=== PATIENT | female | born 1950 | race Caucasian/White ===

== ENCOUNTER → 2017-07-05 | Outpatient (REF) | payer BC ==
[~2017-07-05] MED LIST: COLA100C2 OR; PERC5TAB8 OR; PERC7.5T8 OR
[2017-07-05 12:28] LABS: ALBUMIN 3.7 GM/DL (3.2-5.2); ALBUMIN/GLOBULIN RATIO 1.32 (1.00-1.93); BILIRUBIN,TOTAL 0.9 MG/DL (0.2-1.0); CALCIUM LEVEL 9.3 MG/DL (8.8-10.2); CREATININE FOR GFR 1.02 MG/DL (0.55-1.02); GLOMERULAR FILTRATION RATE 57.4 (>45); POTASSIUM SERUM 3.9 MEQ/L (3.5-5.1); TOTAL PROTEIN 6.5 GM/DL (6.4-8.2)
== END ==
LOC: M SFHCCLAY 06:56
PROVIDERS: ATTEND Family Medicine
DX: I10 Essential (primary) hypertension (principal); E78.00 Pure hypercholesterolemia, unspecified

== ENCOUNTER → 2017-08-11 | Outpatient (CLI) | payer BC ==
--- NOTE | 2017-08-11 16:50 | REPMRS ---
Patient History The patient states she had a clinical breast exam in 07/2017. Patient is postmenopausal. Family history of breast cancer in paternal aunt, breast cancer in maternal aunt at age 50 or over, and breast cancer in maternal grandmother at age 50 or over. Digital Woman Screen Mammo: August 11, 2017 - Exam #: [id number] Bilateral CC and MLO view(s) were taken. Technologist: Shakira Valencia Technologist Prior study comparison: August 10, 2016, digital woman screen mammo performed at [facility]. August 07, 2015, digital woman screen mammo performed at [facility]. FINDINGS: There are scattered fibroglandular densities. There has been no change in the appearance of the mammogram from the prior studies. There is a mild amount of residual fibroglandular tissue which is fairly symmetric. There is no interval development of dominant mass, architectural distortion, or clustered microcalcification suggestive of malignancy. ASSESSMENT: BI-RADS/ACR category 1 mammogram. Negative. Recommendation Routine screening mammogram in 1 year (for women over age 40). This mammogram was interpreted with the aid of an FDA-approved computer-aided dectection system. Electronically Signed By: Loy Villanueva MD 08/11/17 3096
== END ==
LOC: M WHC 15:21
PROVIDERS: ATTEND Nurse Practitioner Women's Health
DX: Z12.31 Encounter for screening mammogram for malignant neoplasm of breast (principal); Z78.0 Asymptomatic menopausal state; Z80.3 Family history of malignant neoplasm of breast

== ENCOUNTER → 2017-11-16 | Outpatient (CLI) | payer BC | LOC: M CLY 08:58 | DX: M79.671 Pain in right foot (principal) ==

== ENCOUNTER → 2018-07-10 | Outpatient (REF) | payer BC ==
[2018-07-10 12:31] LABS: ALBUMIN 3.7 GM/DL (3.2-5.2); ALBUMIN/GLOBULIN RATIO 1.54 (1.00-1.93); ALKALINE PHOSPHATASE 57 U/L (45-117); ALT/SGPT 31 U/L (12-78); ANION GAP 7 MEQ/L (8-16); AST/SGOT 20 U/L (7-37); BILIRUBIN,TOTAL 0.7 MG/DL (0.2-1.0); BLOOD UREA NITROGEN 15 MG/DL (7-18); CALCIUM LEVEL 9.4 MG/DL (8.8-10.2); CARBON DIOXIDE LEVEL 29 MEQ/L (21-32); CHLORIDE LEVEL 106 MEQ/L (98-107); CHOLESTEROL LEVEL 158 MG/DL (<200); CHOLESTEROL RISK RATIO 3.098 (<5); CREATININE FOR GFR 1.11 MG/DL (0.55-1.30); GLOMERULAR FILTRATION RATE 51.9 (>45); GLUCOSE, FASTING 112 MG/DL (70-100); HDL CHOLESTEROL 51 MG/DL (>40); LDL CHOLESTEROL 95 MG/DL (<100); NON-HDL-C 107 MG/DL; POTASSIUM SERUM 3.4 MEQ/L (3.5-5.1); SODIUM LEVEL 142 MEQ/L (136-145); TOTAL PROTEIN 6.1 GM/DL (6.4-8.2); TRIGLYCERIDES LEVEL 61 MG/DL (<150)
== END ==
LOC: M SFHCCLAY 07:03
DX: I10 Essential (primary) hypertension (principal)
CPT/HCPCS: 80053

== ENCOUNTER → 2018-10-13 | Outpatient (REF) | payer BC | LOC: M SFHCPLAZ 10:43 | PROVIDERS: ATTEND Dermatology | DX: D23.62 Other benign neoplasm of skin of left upper limb, including shoulder (principal); D23.5 Other benign neoplasm of skin of trunk ==

== ENCOUNTER → 2019-05-18 | Outpatient (REF) | payer BC ==
[2019-05-18 12:49] LABS: ALBUMIN 3.9 GM/DL (3.2-5.2); BILIRUBIN,TOTAL 0.8 MG/DL (0.2-1.0); CALCIUM LEVEL 9.5 MG/DL (8.8-10.2); CREATININE FOR GFR 1.07 MG/DL (0.55-1.30); TOTAL PROTEIN 6.6 GM/DL (6.4-8.2)
== END ==
LOC: M SFHCCLAY 08:34
PROVIDERS: ATTEND Family Medicine
DX: I10 Essential (primary) hypertension (principal)

== ENCOUNTER → 2019-08-24 | Outpatient (CLI) | payer BC ==
--- NOTE | 2019-08-24 15:30 | REPMRS ---
Patient History The patient states she has not had a clinical breast exam in over a year. Family history of breast cancer at age 50 or over in maternal grandmother, breast cancer at age 50 or over in maternal aunt, breast cancer in paternal aunt. No Hormone Replacement Therapy Digital Woman Screen Mammo: August 24, 2019 - Exam #: [id number] Bilateral CC and MLO view(s) were taken. Technologist: Precious Rivera, Technologist Prior study comparison: August 24, 2018, bilateral digital woman screen mammo performed at [facility]. August 11, 2017, digital woman screen mammo performed at [facility]. August 10, 2016, digital woman screen mammo performed at [facility]. FINDINGS: There are scattered fibroglandular densities. There has been no change in the appearance of the mammogram from the prior studies. There is a mild amount of scattered fibroglandular density which is fairly symmetric. There is no interval development of dominant mass, architectural distortion, or grouped microcalcification suggestive of malignancy. 3-D tomosynthesis shows no additional findings. Assessment: BI-RADS/ACR category 1 mammogram. Negative Mammogram. Recommendation Routine screening mammogram of both breasts in 1 year (for women over age 40). This patient's Lifetime Breast Cancer Risk is estimated at 4.3 %. This mammogram was interpreted with the aid of an FDA-approved computer-aided dectection system. Electronically Signed By: Ghanshyam Munoz MD 08/24/19 1263
== END ==
LOC: M WHC 14:30
PROVIDERS: ATTEND Nurse Practitioner Women's Health
DX: Z12.31 Encounter for screening mammogram for malignant neoplasm of breast (principal); Z85.3 Personal history of malignant neoplasm of breast

== ENCOUNTER → 2020-04-24 | Outpatient (REF) | payer BC, MEDICARE, OTHER ==
[2020-04-24 14:41] LABS: CALCIUM LEVEL 9.7 MG/DL (8.8-10.2); CREATININE FOR GFR 1.05 MG/DL (0.55-1.30); POTASSIUM SERUM 4.3 MEQ/L (3.5-5.1)
== END ==
LOC: M LABDRAWC 12:29 → M LAB REF 12:29
PROVIDERS: ATTEND Family Medicine
DX: I11.9 Hypertensive heart disease without heart failure (principal)

== ENCOUNTER → 2020-06-30 | Outpatient (REF) | payer OTHER ==
[2020-06-30 16:10] LABS: CREATININE FOR GFR 1.02 MG/DL (0.55-1.30); GLOMERULAR FILTRATION RATE 56.9 (>39); POTASSIUM SERUM 3.9 MEQ/L (3.5-5.1)
[2020-06-30 16:11] LABS: CALCIUM LEVEL 10.4 MG/DL (8.8-10.2)
== END ==
LOC: M SFHCCLAY 10:47
PROVIDERS: ATTEND Physician Assistant
DX: I10 Essential (primary) hypertension (principal)

== ENCOUNTER → 2020-07-01 | Outpatient (CLI) | payer OTHER | LOC: M RAD 13:59 | PROVIDERS: ATTEND Physician Assistant | DX: S09.90XS Unspecified injury of head, sequela (principal) ==

== ENCOUNTER → 2020-10-09 | Outpatient (CLI) | payer MEDICARE ==
--- NOTE | 2020-10-09 15:00 | DEXAMM ---
INDICATION: Z78.0 MENOPAUSE. COMPARISON: Comparison studies including most recent study of August 09, 2013 and the most remote dated July 10, 2002.. TECHNIQUE: Bone density was measured using dual-energy x-ray absorptionmetry (DEXA). FINDINGS: AP SPINE L1-L4 BMD 1.082 g/cm2 Young Adult T-Score -0.9 Age Matched Z-Score 0.8. LT FEMUR, TOTAL BMD 0.834 g/cm2 Young Adult T-Score -1.4 Age Matched Z-Score 0.2. LT NECK BMD 0.758 g/cm2 Young Adult T-Score -2.0 Age Matched Z-Score -0.3. RT FEMUR, TOTAL BMD 0.904 g/cm2 Young Adult T-Score -0.8 Age Matched Z-Score 0.7. RT NECK BMD 0.791 g/cm2 Young Adult T-Score -1.8 Age Matched Z-Score 0.0. IMPRESSION: There is normal bone density of the spine. There is low bone density of the left hip. There is low bone density of the right hip. The density of the spine has increased 8.3% since the initial exam on July 10, 2002. The density of the spine increased 5.5% since most recent exam on August 09, 2013. The density of the left hip has decreased 22.1% since initial exam on July 10, 2002. The density of the left hip has decreased 12.4% since most recent exam on August 09, 2013. The density of the right hip has decreased 13.3% since the initial exam on July 10, 2002. The density of the right hip has decreased 8.1% since the most recent exam on August 09, 2013. FOLLOW-UP: Recommendation for the next bone density exam: 2 years. <Electronically signed by Ghanshyam Munoz > 10/09/20 [id number]
--- NOTE | 2020-10-09 15:16 | REPMRS ---
Patient History The patient states she has not had a clinical breast exam in over a year. Family history of breast cancer at age 50 or over in maternal grandmother, breast cancer at age 50 or over in maternal aunt, breast cancer in paternal aunt. No Hormone Replacement Therapy Digital Woman Screen Mammo: October 09, 2020 - Exam #: [id number] Bilateral CC and MLO view(s) were taken. Technologist: Virginia Arora, Technologist Prior study comparison: August 24, 2019, bilateral digital woman screen mammo performed at [facility]. August 24, 2018, bilateral digital woman screen mammo performed at [facility]. August 11, 2017, digital woman screen mammo performed at [facility]. FINDINGS: The breast tissue is almost entirely fat. The Volpara volumetric breast density category is: A. There has been no change in the appearance of the mammogram from the prior studies. There is no interval development of dominant mass, architectural distortion, or grouped microcalcification typical of malignancy. 3-D tomosynthesis shows no additional findings. Assessment: BI-RADS/ACR category 1 mammogram. Negative Mammogram. Recommendation Routine screening mammogram of both breasts in 1 year (for women over age 40). This patient's [facility] Lifetime Breast Cancer RIsk is estimated at 4.0 %. This mammogram was interpreted with the aid of an FDA-approved computer-aided dectection system. Electronically Signed By: Ghanshyam Munoz MD 10/09/20 [id number]
== END ==
LOC: M WHC 13:30
PROVIDERS: ATTEND Family Medicine
DX: Z12.31 Encounter for screening mammogram for malignant neoplasm of breast (principal); Z78.0 Asymptomatic menopausal state; M85.851 Other specified disorders of bone density and structure, right thigh; M85.852 Other specified disorders of bone density and structure, left thigh

== ENCOUNTER → 2020-12-31 | Outpatient (REF) | payer MEDICARE, OTHER ==
[2020-12-31 15:51] LABS: HEMATOCRIT 47.6 % (36.0-47.0); HEMOGLOBIN 15.9 g/dl (12.0-15.5); MEAN CORPUSCULAR HEMOGLOBIN 30.1 pg (27.0-33.0); MEAN CORPUSCULAR HGB CONC 33.4 g/dl (32.0-36.5); MEAN CORPUSCULAR VOLUME 90.2 fl (80.0-96.0); PLATELET COUNT, AUTOMATED 164 10^3/uL (150-450); RED BLOOD COUNT 5.28 10^6/uL (4.00-5.40); WHITE BLOOD COUNT 5.1 10^3/uL (4.0-10.0)
[2020-12-31 16:30] LABS: ERYTHROCYTE SEDIMENTATION RATE 2 mm/hr (0-30)
[2020-12-31 16:31] LABS: ALT/SGPT 23 U/L (12-78); BILIRUBIN,TOTAL 0.7 MG/DL (0.2-1.0); BLOOD UREA NITROGEN 19 MG/DL (7-18); CALCIUM LEVEL 10.2 MG/DL (8.8-10.2); CARBON DIOXIDE LEVEL 31 MEQ/L (21-32); CHLORIDE LEVEL 107 MEQ/L (98-107); GLOMERULAR FILTRATION RATE 58.2 (>39); GLUCOSE, FASTING 76 MG/DL (70-100); POTASSIUM SERUM 4.3 MEQ/L (3.5-5.1); RHEUMATOID FACTOR QUANT < 10.0 IU/ML (<15.0); SODIUM LEVEL 142 MEQ/L (136-145); TOTAL PROTEIN 6.5 GM/DL (6.4-8.2)
[2021-01-02 23:07] LABS: ANA (HEP2) Positive (.); CARDIOLIPIN IGA ANTIBODY <9 APL U/mL (0-11); CARDIOLIPIN IGG ANTIBODY <9 GPL U/mL (0-14); CARDIOLIPIN IGM ANTIBODY <9 MPL U/mL (0-12); Lyme Disease IgG/IgM Antibodie <0.91 ISR (0.00-0.90); Lyme Disease IgM Ab Quantitati <0.80 index (0.00-0.79)
== END ==
LOC: M SFHCCLAY 09:57
PROVIDERS: ATTEND Family Medicine
DX: M25.59 Pain in other specified joint (principal); L40.9 Psoriasis, unspecified

== ENCOUNTER → 2021-05-22 | Outpatient (REF) | payer MEDICARE ==
[2021-05-22 16:37] LABS: BASO # 0.1 10^3/uL (0.0-0.2); BASO % 0.9 % (0.0-1.0); EOS # 0.1 10^3/uL (0.0-0.5); EOS % 1.9 % (0.0-3.0); HEMATOCRIT 47.1 % (36.0-47.0); HEMOGLOBIN 16.1 g/dl (12.0-15.5); LYMPH # 0.9 10^3/uL (1.5-5.0); LYMPH % 15.7 % (24.0-44.0); MEAN CORPUSCULAR HGB CONC 34.2 g/dl (32.0-36.5); MEAN CORPUSCULAR VOLUME 90.8 fl (80.0-96.0); MONO # 0.5 10^3/uL (0.0-0.8); MONO % 8.6 % (2.0-8.0); NEUTROPHILS # 4.2 10^3/uL (1.5-8.5); NEUTROPHILS % 72.6 % (36.0-66.0); PLATELET COUNT, AUTOMATED 160 10^3/uL (150-450); RED BLOOD COUNT 5.19 10^6/uL (4.00-5.40); WHITE BLOOD COUNT 5.7 10^3/uL (4.0-10.0)
[2021-05-22 17:14] LABS: C REACTIVE PROTEIN QUANTITATIV 0.3 MG/DL (0.00-0.30); CALCIUM LEVEL 9.3 MG/DL (8.8-10.2); CREATININE FOR GFR 1.05 MG/DL (0.55-1.30); GLOMERULAR FILTRATION RATE 54.8 (>39); POTASSIUM SERUM 3.7 MEQ/L (3.5-5.1); TOTAL PROTEIN 6.9 GM/DL (6.4-8.2)
[2021-05-22 18:20] LABS: ERYTHROCYTE SEDIMENTATION RATE 1 mm/hr (0-30)
== END ==
LOC: M SFHCRHEU 14:09
PROVIDERS: ATTEND Internal Medicine Rheumatology
DX: L40.8 Other psoriasis (principal)
CPT/HCPCS: 80053; 81374; 85025; 85652; 86140; G0463

== ENCOUNTER → 2021-05-26 | Outpatient (CLI) | payer MEDICARE ==
--- NOTE | 2021-05-26 09:14 | REP ---
INDICATION: L40.8, OTHER PSORIASIS. COMPARISON: None. TECHNIQUE: AP and oblique views of the sacroiliac joints FINDINGS: Sacroiliac joints are symmetric with mild age-related periarticular sclerosis. No further overt osteoarthritic or inflammatory arthritic changes are identified. IMPRESSION: Symmetric predominately age-related degenerative changes to the bilateral sacroiliac joints. <Electronically signed by Parminder Hooker > 05/26/21 0957
--- NOTE | 2021-05-26 09:16 | REP ---
INDICATION: L40.8, OTHER PSORIASIS COMPARISON: None. TECHNIQUE: AP, lateral, flexion/extension, and open-mouth views. FINDINGS: Alignment and lordosis maintained. Generalized age-related osteopenia noted. Moderate to advanced multilevel degenerative changes include osteophytosis, endplate sclerosis, disc space narrowing and facet hypertrophy. Findings are most pronounced at C6-7 and C5-6 and to a lesser extent C4-5. No acute fracture/compression injury or subluxation. Spinous processes are intact. Open mouth view demonstrates normal C1-C2 articulation and odontoid process. IMPRESSION: Multilevel degenerative spondylosis. <Electronically signed by Parminder Hooker > 05/26/21 0922
--- NOTE | 2021-05-26 09:17 | REP ---
INDICATION: L40.8, OTHER PSORIASIS COMPARISON: None. TECHNIQUE: AP, lateral, flexion/extension, bilateral oblique, and coned-down views. FINDINGS: Generalized osteopenia. Alignment and lordosis maintained. Moderate to advanced multilevel degenerative changes noted throughout the visualized lower thoracic and lumbosacral spine. Findings include endplate sclerosis, facet hypertrophy, and disc space narrowing. Findings most pronounced at L4-5 and L5-S1. No acute fracture/compression injury or subluxation. IMPRESSION: Multilevel degenerative spondylosis. No acute fracture/compression injury or subluxation. <Electronically signed by Parminder Hooker > 05/26/21 0994
--- NOTE | 2021-05-26 09:18 | REP ---
INDICATION: L40.8, OTHER PSORIASIS. COMPARISON: None. TECHNIQUE: AP and lateral views of the thoracic spine. FINDINGS: Alignment and kyphosis maintained. Generalized osteopenia and moderate to advanced multilevel degenerative changes include endplate sclerosis, disc space narrowing and bridging osteophytosis. No acute fracture/compression injury or subluxation identified. IMPRESSION: Osteopenia and multilevel degenerative spondylosis. <Electronically signed by Parminder Hooker > 05/26/21 0915
--- NOTE | 2021-05-26 09:21 | REP ---
INDICATION: L40.8, OTHER PSORIASIS COMPARISON: None. TECHNIQUE: AP, lateral, bilateral oblique views right and left foot. FINDINGS: Generalized relatively symmetric age-related osteopenia is appreciated. Right foot demonstrates moderate osteoarthritic degenerative changes including periarticular sclerosis, joint space narrowing, and marginal spurring primarily involving the interphalangeal joints as well as the 1st metatarsophalangeal joint. Heterotopic ossification and cortical irregularities along the lateral aspect of the navicula raise the possibility of old injury versus fused bipartite changes. No acute fracture or dislocation. Left foot demonstrates relatively mild to moderate osteoarthritic degenerative changes including periarticular sclerosis, joint space narrowing and marginal spurring primarily involving the interphalangeal joints and 1st metatarsophalangeal joint. Cortical irregularity and chronic bipartite navicula noted. No acute fracture or dislocation. IMPRESSION: Relatively generalized moderate age-related osteoarthritic degenerative changes. <Electronically signed by Parminder Hooker > 05/26/21 0918
--- NOTE | 2021-05-26 09:24 | REP ---
INDICATION: L40.8, OTHER PSORIASIS COMPARISON: None. TECHNIQUE: AP, lateral, bilateral oblique views right and left hand. FINDINGS: Left hand demonstrates age-related osteoarthritic degenerative changes to the 1st metacarpophalangeal and 1st through 5th interphalangeal joints including subchondral sclerosis with mild joint space narrowing. No periarticular soft tissue swelling or erosive changes noted. Moderate hines carpal degenerative changes include periarticular sclerosis with joint space narrowing and mild chronic subluxation primarily along the lateral aspect of the wrist. Evidence for old fracture fixation involving the distal radius. Right hand demonstrates age-related osteoarthritic degenerative changes primarily involving the interphalangeal joints and 1st metacarpophalangeal joint including subchondral sclerosis with mild joint space narrowing. No periarticular erosive changes or significant soft tissue swelling. Old healed fracture involving the 5th metacarpal bone is suggested. IMPRESSION: Relatively mild/moderate age-related osteoarthritic degenerative changes noted bilaterally. Findings are relatively most pronounced at the left wrist which also demonstrates sequelae of prior injury. <Electronically signed by Parminder Hooker > 05/26/21 0963
== END ==
LOC: M CLY 08:01
PROVIDERS: ATTEND Internal Medicine Rheumatology
DX: L40.8 Other psoriasis (principal); M47.818 Spondylosis without myelopathy or radiculopathy, sacral and sacrococcygeal region; M19.041 Primary osteoarthritis, right hand; M19.042 Primary osteoarthritis, left hand; M85.88 Other specified disorders of bone density and structure, other site; M47.816 Spondylosis without myelopathy or radiculopathy, lumbar region; M47.814 Spondylosis without myelopathy or radiculopathy, thoracic region; M19.071 Primary osteoarthritis, right ankle and foot; M19.072 Primary osteoarthritis, left ankle and foot; M50.322 Other cervical disc degeneration at C5-C6 level; M50.323 Other cervical disc degeneration at C6-C7 level

== ENCOUNTER → 2021-09-07 | Outpatient (REF) | payer MEDICARE | LOC: M LAB REF 14:03 | PROVIDERS: ATTEND Nurse Practitioner Family | DX: L82.0 Inflamed seborrheic keratosis (principal) ==

== ENCOUNTER → 2021-10-12 | Outpatient (CLI) | payer MEDICARE | LOC: M WHC 13:26 | PROVIDERS: ATTEND Family Medicine | DX: Z12.31 Encounter for screening mammogram for malignant neoplasm of breast (principal); Z80.3 Family history of malignant neoplasm of breast ==

== ENCOUNTER → 2022-01-12 | Outpatient (REF) | payer MEDICARE ==
[2022-01-12 17:30] LABS: CALCIUM LEVEL 10.5 MG/DL (8.8-10.2); CREATININE FOR GFR 1.04 MG/DL (0.55-1.30); GLOMERULAR FILTRATION RATE 55.3 (>39); POTASSIUM SERUM 4.1 MEQ/L (3.5-5.1)
== END ==
LOC: M SFHCCLAY 13:08
PROVIDERS: ATTEND Family Medicine
DX: I11.9 Hypertensive heart disease without heart failure (principal)

== ENCOUNTER → 2022-01-19 | Outpatient (REF) | payer MEDICARE | LOC: M SFHCCLAY 07:17 | PROVIDERS: ATTEND Family Medicine | DX: E83.52 Hypercalcemia (principal) ==

== ENCOUNTER → 2022-09-08 | Outpatient (REF) | payer MEDICARE ==
[2022-09-08 18:08] LABS: BASO # 0.1 10^3/uL (0.0-0.2); BASO % 0.9 % (0.0-1.0); EOS % 0.3 % (0.0-3.0); HEMATOCRIT 48.4 % (36.0-47.0); HEMOGLOBIN 16.3 g/dl (12.0-15.5); LYMPH # 0.6 10^3/uL (1.5-5.0); MEAN CORPUSCULAR HEMOGLOBIN 31.5 pg (27.0-33.0); MEAN CORPUSCULAR HGB CONC 33.7 g/dl (32.0-36.5); MEAN CORPUSCULAR VOLUME 93.6 fl (80.0-96.0); MONO # 0.4 10^3/uL (0.0-0.8); MONO % 7.1 % (2.0-8.0); NEUTROPHILS # 4.7 10^3/uL (1.5-8.5); NEUTROPHILS % 81.2 % (36.0-66.0); PLATELET COUNT, AUTOMATED 198 10^3/uL (150-450); RED BLOOD COUNT 5.17 10^6/uL (4.00-5.40); WHITE BLOOD COUNT 5.8 10^3/uL (4.0-10.0)
[2022-09-08 18:34] LABS: ALKALINE PHOSPHATASE 66 U/L (46-116); ALT/SGPT 17 U/L (7.0-40); AST/SGOT 24 U/L (<34); BILIRUBIN,TOTAL 1.2 MG/DL (0.3-1.2); BLOOD UREA NITROGEN 17 MG/DL (9-23); CALCIUM LEVEL 9.7 MG/DL (8.3-10.6); CARBON DIOXIDE LEVEL 30 MMOL/L (20-31); CHLORIDE LEVEL 105 MMOL/L (98-107); CREATININE FOR GFR 0.95 MG/DL (0.55-1.30); GLOMERULAR FILTRATION RATE > 60.0 (>39); GLUCOSE, FASTING 88 MG/DL (74-106); POTASSIUM SERUM 4.2 MMOL/L (3.5-5.1); SODIUM LEVEL 142 MMOL/L (136-145); TOTAL PROTEIN 6.4 G/DL (5.7-8.2)
[2022-09-08 18:36] LABS: THYROID STIMULATING HORMONE 0.534 uIU/ML (0.55-4.78); VITAMIN B12 LEVEL 289 PG/ML (211-911)
[2022-09-08 18:41] LABS: FREE T4 1.47 NG/DL (0.89-1.76)
[2022-09-08 18:47] LABS: APPEARANCE, URINE MANUAL TURBID (CLEAR); COLOR, URINE MANUAL YELLOW (YELLOW)
[2022-09-08 18:48] LABS: BILIRUBIN, URINE MANUAL NEGATIVE (NEGATIVE); BLOOD URINE MANUAL TRACE (NEGATIVE); GLUCOSE, URINE (UA) MANUAL NEGATIVE (NEGATIVE); KETONE, URINE MANUAL NEGATIVE (NEGATIVE); LEUKOCYTE ESTERASE, URINE MAN NEGATIVE (NEGATIVE); NITRITE, URINE MANUAL NEGATIVE (NEGATIVE); PROTEIN, URINE MANUAL NEGATIVE (NEGATIVE); UROBILINOGEN, URINE MANUAL NORMAL (NORMAL)
[2022-09-08 19:39] LABS: AMORPHOUS SEDIMENT, URINE LARGE AMOUNT (NEGATIVE); BACTERIA, URINE NONE SEEN; HYALINE CAST, URINE NONE SEEN /lpf (0-1); SQUAMOUS EPITHELIAL CELL URINE SMALL AMOUNT /hpf (SMALL AMT); WBC, URINE NONE SEEN /hpf (0-3)
== END ==
LOC: M SFHCCLAY 10:55
PROVIDERS: ATTEND Family Medicine
DX: I11.9 Hypertensive heart disease without heart failure (principal); R63.4 Abnormal weight loss

== ENCOUNTER → 2022-09-23 | Outpatient (CLI) | payer MEDICARE | LOC: M RAD 06:59 | PROVIDERS: ATTEND Family Medicine | DX: N28.89 Other specified disorders of kidney and ureter (principal) ==

== ENCOUNTER → 2022-11-05 | Outpatient (CLI) | payer MEDICARE | LOC: M WHC 09:24 | PROVIDERS: ATTEND Family Medicine | DX: Z12.31 Encounter for screening mammogram for malignant neoplasm of breast (principal) ==

== ENCOUNTER → 2022-12-20 | Outpatient (REF) | payer MEDICARE ==
[2022-12-20 11:47] LABS: HEMATOCRIT 47.7 % (36.0-47.0); MEAN CORPUSCULAR HEMOGLOBIN 31.6 pg (27.0-33.0); MEAN CORPUSCULAR HGB CONC 33.5 g/dl (32.0-36.5); MEAN CORPUSCULAR VOLUME 94.3 fl (80.0-96.0); PLATELET COUNT, AUTOMATED 172 10^3/uL (150-450); RED BLOOD COUNT 5.06 10^6/uL (4.00-5.40); WHITE BLOOD COUNT 5.2 10^3/uL (4.0-10.0)
[2022-12-20 11:54] LABS: ALBUMIN 3.8 G/DL (3.2-5.2); CALCIUM LEVEL 9.3 MG/DL (8.3-10.6); CHOLESTEROL RISK RATIO 2.76 (<5); CREATININE FOR GFR 1.02 MG/DL (0.55-1.30); GLOMERULAR FILTRATION RATE 56.6 (>39); HDL CHOLESTEROL 58.9 MG/DL (>40); LDL CHOLESTEROL 93.5 MG/DL (<100); NON-HDL-C 104.1 MG/DL; POTASSIUM SERUM 3.7 MMOL/L (3.5-5.1); THYROID STIMULATING HORMONE 0.776 uIU/ML (0.55-4.78); TOTAL PROTEIN 6.1 G/DL (5.7-8.2)
[2022-12-20 11:56] LABS: FREE T4 1.32 NG/DL (0.89-1.76)
== END ==
LOC: M SFHCCLAY 08:10
PROVIDERS: ATTEND Family Medicine
DX: I10 Essential (primary) hypertension (principal); L40.9 Psoriasis, unspecified; Z23 Encounter for immunization

== ENCOUNTER → 2023-11-23 | Outpatient (CLI) | payer MEDICARE | LOC: M WHC 10:02 | PROVIDERS: ATTEND Family Medicine | DX: Z12.31 Encounter for screening mammogram for malignant neoplasm of breast (principal); M85.89 Other specified disorders of bone density and structure, multiple sites; Z78.0 Asymptomatic menopausal state; R92.323 Mammographic fibroglandular density, bilateral breasts; R92.8 Other abnormal and inconclusive findings on diagnostic imaging of breast ==

== ENCOUNTER → 2023-12-13 | Outpatient (CLI) | payer MEDICARE | LOC: M WHC 10:27 | PROVIDERS: ATTEND Family Medicine | DX: R92.8 Other abnormal and inconclusive findings on diagnostic imaging of breast (principal); R92.322 Mammographic fibroglandular density, left breast | CPT/HCPCS: 77065; G0279 ==

== ENCOUNTER → 2024-02-09 | Outpatient (REF) | payer MEDICARE ==
[2024-02-09 14:23] LABS: ALBUMIN 3.9 G/DL (3.2-5.2); ALKALINE PHOSPHATASE 70 U/L (46-116); ALT/SGPT 15 U/L (7.0-40); AST/SGOT 13 U/L (<34); BILIRUBIN,TOTAL 1.4 MG/DL (0.3-1.2); BLOOD UREA NITROGEN 14 MG/DL (9-23); CALCIUM LEVEL 9.9 MG/DL (8.3-10.6); CARBON DIOXIDE LEVEL 31 MMOL/L (20-31); CHLORIDE LEVEL 109 MMOL/L (98-107); CREATININE FOR GFR 0.96 MG/DL (0.55-1.30); GLOMERULAR FILTRATION RATE > 60.0 (>39); GLUCOSE, FASTING 91 MG/DL (74-106); POTASSIUM SERUM 4.9 MMOL/L (3.5-5.1); SODIUM LEVEL 146 MMOL/L (136-145); TOTAL PROTEIN 6.1 G/DL (5.7-8.2)
== END ==
LOC: M SFHCCLAY 09:37
PROVIDERS: ATTEND Family Medicine
DX: I11.9 Hypertensive heart disease without heart failure (principal); R63.4 Abnormal weight loss

== ENCOUNTER → 2024-02-21 | Outpatient (REF) | payer MEDICARE | LOC: M SFHCCLAY 14:50 | PROVIDERS: ATTEND Family Medicine | DX: B35.1 Tinea unguium (principal) ==

== ENCOUNTER → 2024-03-08 | Outpatient (REF) | payer MEDICARE ==
[2024-03-08 12:37] LABS: BLOOD UREA NITROGEN 18 MG/DL (9-23); CARBON DIOXIDE LEVEL 31 MMOL/L (20-31); CHLORIDE LEVEL 108 MMOL/L (98-107); CREATININE FOR GFR 0.95 MG/DL (0.55-1.30); GLOMERULAR FILTRATION RATE > 60.0 (>39); GLUCOSE, FASTING 77 MG/DL (74-106); POTASSIUM SERUM 4.2 MMOL/L (3.5-5.1); SODIUM LEVEL 145 MMOL/L (136-145)
== END ==
LOC: M SFHCCLAY 09:21
PROVIDERS: ATTEND Family Medicine
DX: E87.0 Hyperosmolality and hypernatremia (principal)

== ENCOUNTER → 2025-04-16 | Outpatient (CLI) | payer MEDICARE ==
[~2025-04-16] MED LIST changes: +ASPI81TA26 PO; +AUGM0.0511 TOP; +BIOT5CAP8 PO; +CALC600C3 PO; +DESO0.0557 EX; +GLUC1CAP10 PO; +HYDR-3490 PO; +LEXA1TAB PO; +TERB250T91 PO; +[UNRECOGNIZED DRUG - OTHER] TOP
[2025-04-16 14:53] LABS: ALT/SGPT 18.0 U/L (7.0-40); AST/SGOT 24.0 U/L (<34); CALCIUM LEVEL 9.8 MG/DL (8.3-10.6); CARBON DIOXIDE LEVEL 33.0 MMOL/L (20-31); CHLORIDE LEVEL 103.0 MMOL/L (98-107); CREATININE FOR GFR 1.0 MG/DL (0.55-1.30); GLOMERULAR FILTRATION RATE 58.4 (>39); POTASSIUM SERUM 4.0 MMOL/L (3.5-5.1); SODIUM LEVEL 144.0 MMOL/L (136-145)
== END ==
LOC: M LAB 13:21
PROVIDERS: ATTEND Physician Assistant
DX: Z79.899 Other long term (current) drug therapy (principal)

== ENCOUNTER 2025-05-08 09:41 | Day surgery (SDC) | payer MEDICARE ==
[~2025-05-08] VITALS: Ht 165.1 cm; Wt 71.9 kg
[~2025-05-08 09:41] MED LIST changes: -DESO0.0557 EX; +DESO0.0572 EX; +LIDOCAINE 2% 100 MG/5 ML SDV (FOR ANES.) As Ordered ONE
[2025-05-08 11:11] VITALS: TEMP 97.1
[2025-05-08 11:47] VITALS: BP 165/87; O2SAT 100
== END 2025-05-08 11:48 | disposition home or self-care (01) ==
LOC: M OPP 09:41
PROVIDERS: ATTEND Surgery
DX: Z12.11 Encounter for screening for malignant neoplasm of colon (principal); K57.30 Diverticulosis of large intestine without perforation or abscess without bleeding; Z91.048 Other nonmedicinal substance allergy status; Z79.82 Long term (current) use of aspirin; Z79.899 Other long term (current) drug therapy